=== PATIENT | female | born 1975 ===

== ENCOUNTER 2016-07-13 13:44 | Emergency (ER) | payer SELFPAY ==
--- NOTE | 2016-08-05 13:49 | ER ---
ADMIT: 07/13/2016 RM/LOC: ER [facility] MR#: [id number] [id number] [facility] [address] [address]TEZ [address] [place] [address] Emergency Room Report SEX: F AGE: 40 : 1975 DATE: 07/13/2016 ADDENDUM: CHIEF COMPLAINT: Abdominal pain. COURSE IN THE EMERGENCY ROOM: A urinalysis was done, which showed 1+ blood. test is negative. CLINICAL IMPRESSION: Right lower and left lower abdominal pain. PLAN: Sent to her home, have Motrin or Tylenol for pain, and follow up with her PCP if worsen. RAFAT Wright / Hudson Fernando MD / imeldal JOB #: [id number] CC: Hudson Fernando MD, Attending Physician Johan Carrington MD, Family Physician
== END 2016-07-13 16:00 | disposition home or self-care (01) ==
LOC: ER 13:44
DX: R10.31 Right lower quadrant pain (principal); R10.32 Left lower quadrant pain; F17.210 Nicotine dependence, cigarettes, uncomplicated

== ENCOUNTER 2016-07-14 11:20 | Emergency (ER) | payer SELFPAY ==
--- NOTE | 2016-07-24 06:57 | ER ---
ADMIT: 07/14/2016 RM/LOC: ER [facility] MR#: [id number] [id number] [place], [place] [address] [address] [place] [address] Emergency Room Report SEX: F AGE: 40 : 1975 DATE: 07/14/2016 PRIMARY PROVIDER: City call. HISTORY OF PRESENT ILLNESS: The patient is a 40-year-old female, who was in the emergency room last night, seen and released, diagnosed with back pain. A urinalysis was done that came back negative. She was encouraged to follow up with Dr. Garcia, make an appointment. She works at [employer] and returned today because she could not get in to see Dr. Garcia, complaining of right buttocks and leg pain. She stated that it starts at the middle of her right buttocks area and wraps around the leg into her toe. Upon physical examination, I figured out that this is more related to sciatic nerve impingement and a urinary tract infection or a normal lumbar strain. She takes no medication on a regular basis and has no allergies. IMMUNIZATIONS: Up-to-date. PHYSICAL EXAMINATION: VITAL SIGNS: Her vitals were within normal limits. Her blood pressure was 115/47 with a pulse of 91, respirations 18, temperature is 97.8. She has had an appy, a jose m, and a tubal ligation. GENERAL: On examination, alert. Foot and ankle are patent and normal. NECK: Supple. She does have tenderness around the right buttocks area wrapping around the medial aspect of the knee and going down into the toe which is sacral nerve 1 (S1). EXTREMITIES: Thigh, normal inspection. She does have some altered sensorium, feeling of burning sensation, and mild numbness in the medial aspect of her leg and thigh. SKIN: Warm and dry. RESPIRATIONS: Chest is nontender. HEART: Sounds normal. ABDOMEN: Nontender. ADMIT: 07/14/2016 RM/LOC: ER [facility] MR#: [id number] [address] [address] [address]TE[address] [place] [address] Emergency Room Report SEX: F AGE: 40 : 1975 IMAGING: No x-rays were done at this time. View of the nature of her job, she works at [employer]. I went ahead and prescribed prednisone and Flexeril treating sciatica. Issues explained what this is all about and encouraged her to follow up with PCP. IMPRESSION: Sciatica, right lumbar pain secondary to lumbar strain. Apparently, Dr. Garcia's office was trying to get a hold of her, and they do have an appointment at 0315 hours, so I encouraged the patient just so that she can get treatment for the issue today, so she can get established, and she has a primary provider that she can go and see for issues like this in the future. RAFAT Davila / Hudson Fernando MD / carmen JOB #: [id number] CC: Hudson Fernando MD, Attending Physician Erin Garcia MD, Family Physician
== END 2016-07-14 12:45 | disposition home or self-care (01) ==
LOC: ER 11:20
DX: M54.41 Lumbago with sciatica, right side (principal); S39.012A Strain of muscle, fascia and tendon of lower back, initial encounter; X58.XXXA Exposure to other specified factors, initial encounter